=== PATIENT | male | born 1975 | race Hispanic/Latino ===

== ENCOUNTER 2020-10-13 13:09 | Emergency (ER) | payer SELFPAY ==
[2020-10-13 13:26] VITALS: BP 126/77
[2020-10-13] MEDS ORDERED: ZOFRAN ODT 4 MG PO ONE (13:33)
[2020-10-13] MEDS ORDERED: Sodium Chloride 0.9% 1000 ML 1,000 ML IV STA (13:33)
[2020-10-13] MEDS ORDERED: MORPHINE SULFATE 4 MG INJ IV ONE (13:33)
[2020-10-13] MEDS ORDERED: Norflex 60 MG/2 ML IV ONE (13:34)
[2020-10-13] MEDS ORDERED: Sodium Chloride 0.9% 1000 ML 1,000 ML ONE (13:47)
[2020-10-13] MEDS ORDERED: MORPHINE SULFATE 4 MG INJ ONE (13:47)
[2020-10-13] MEDS ORDERED: ZOFRAN ODT 4 MG ONE (13:47)
[2020-10-13] MEDS ORDERED: Norflex 60 MG/2 ML ONE (13:47)
[2020-10-13 14:04] LABS: Absolute Neutrophil Ct (ANC) 4.19 (1.4-6.9); BASOPHIL % 0.2 % (0.0-0.4); Basophil (Absolute #) 0.02 (0-0.4); Eosinophil % 3.7 % (0.00-5.0); Eosinophil (Absolute #) 0.31 (0-0.5); Hematocrit 43.3 % (42-50); Hemoglobin 14.4 gm/dl (12.5-18.0); Lymphocytes % 36.2 % (24.0-44.0); Mean Cell Volume 92.5 fl (78-100); Mean Corpuscular Hemoglobin 30.8 pg (26-32); Mean Corpuscular Hgb Concent. 33.3 g/dl (32-36); Mean Platelet Volume 9.8 fl (7.5-11.0); Monocyte (Absolute #) 0.76 (0.0-1.3); Monocytes % 9.2 % (0.0-12.0); Neutrophil % 50.7 % (36.0-66.0); Platelet Count 285 K/mm3 (150-450); Red Blood Count 4.68 M/mm3 (4.1-5.6); White Blood Count 8.3 K/mm3 (4.0-10.5)
[2020-10-13 14:12] VITALS: PULSE 57
--- NOTE | 2020-10-13 14:19 | XRAY ---
Indication: Right arm pain and numbness. Headache. Comparison: None 3 view right shoulder demonstrates normal bones, articulation, and soft tissues.
--- NOTE | 2020-10-13 14:19 | XRAY ---
Indication: Right arm pain and numbness. Headache. Comparison: None Portable chest demonstrates normal heart, lungs, and bony thorax.
[2020-10-13 14:20] LABS: ALBUMIN 4.4 g/dL (3.5-5.0); ALKALINE PHOSPHATASE 85 U/L (38-126); ANION GAP 12.5 MEQ/L (5-15); BLOOD UREA NITROGEN 10 mg/dL (9-20); CHLORIDE 105 mmol/L (98-107); Carbon Dioxide 26 mmol/L (22-30); Creatinine 1 0.63 mg/dL (0.66-1.25); EST GLOMERULAR FILTRATION RATE > 60.0 ML/MIN; Glucose 89 mg/dL (74-106); Potassium 4.3 mmol/L (3.5-5.1); SGOT/AST 36 U/L (17-59); SGPT/ALT 18 U/L (0-50); SODIUM 139 mmol/L (137-145); Total Protein 7.2 g/dL (6.3-8.2)
--- NOTE | 2020-10-13 14:21 | XRAY ---
Indication: Right arm pain and numbness. Headache. Multiple contiguous axial images obtained through the head without contrast. Comparison: None Normal appearing brain parenchyma, ventricles, and bony calvarium. Moderate mucosal thickening of both ethmoid and lesser degree sphenoid/maxillary sinuses. Mastoid air cells are clear. Impression: Pansinusitis. Remaining CT head without contrast exam is normal.
--- NOTE | 2020-10-13 14:23 | XRAY ---
Indication: Right arm pain and numbness. Neck pain. Headache. Multiple contiguous axial images obtained through the cervical spine. Sagittal and coronal reformatted images obtained. Comparison: None Axial images negative for acute fracture, suspicious bony lesions, or spinal canal stenosis. Minimal C5-C6 broad-based disc osteophyte complex without spinal canal or foraminal compromise. Sagittal and coronal reformatted images demonstrate normal alignment with minimal C5-C6 disc space narrowing. Remaining vertebral body heights/disc spaces maintained. No acute compression fracture, subluxation, or jumped facet. Normal-appearing craniocervical junction. Visualized noncontrasted soft tissues are unremarkable. Lung apices demonstrates minimal pulmonary emphysema. Impression: Minimal C5-C6 degenerative disc disease and minimal pulmonary emphysema. Remaining CT cervical spine is normal.
[2020-10-13] MEDS ORDERED: TORAdol 30 mg Injection ONE (15:05)
[2020-10-13] MEDS ORDERED: TORAdol 30 mg Injection IV ONE (15:08)
[2020-10-13 15:11] VITALS: O2SAT 99
--- NOTE | 2020-10-13 15:22 | ERPHSYRPT ---
- History of Present Illness Time Seen by Provider: 10/13/20 13:16 Source: patient Exam Limitations: no limitations Patient Subjective Stated Complaint: Pt states that he has had a headache for 3 days and it is painful for him to move his right arm, he injured his arm 12 y ears ago Triage Nursing Assessment: Pt brought to the ER by his daughter, altagracia garza, states pain to head is localized to the back, pain in right arm with numbness and tingling, reports having headaches occassionally that last 3 days and has had pain to the arm in the past but today was worse and he couldn't move his arm earlier, pulses normal, rates pain 9/10, denies N&V but does have dizziness Physician History: 45 years old Hungarian-speaking male, daughter translated all history who has history of off and on headaches lasting for 3 to 4 days in the occipital area and improve. He also has history of right upper extremity trauma 12 years ago and having pain off and on with some tingling sensations presented with 2 days history of occipital headache and worsening pain right shoulder/upper extremity and numbness tingling in the hand. He has been taking [id number] medication with no significant relief. Patient rates his headache 9/10 intensity, aggravated with movements and partial relief with being still. Earlier his headache and arm pain was so worse that he was barely able to move his right upper extremity but now pain is 9/10 intensity and is able to move. Reports having similar symptoms multiple times in the past but this time it seems a little severe than normal. He denies any neck pain although has some pain with movements. Denies any neck trauma or head trauma in the past. Denies any chest pain palpitations or shortness of breath. No abdominal pain nausea or vomiting reported. No history of fever chills or neck stiffness reported. Timing/Duration: day(s) (2), constant, gradual onset, worse Quality: sharpness Head Pain Location: occipital Severity of Pain-Max: severe Severity of Pain-Current: severe Recent Head Trauma: no recent headache/trauma, frequent headaches Modifying Factors: Improves With: immobilization. Worsens With: movement, position Associated Symptoms: denies symptoms Previous symptoms: same symptoms as today Allergies/Adverse Reactions: No Known Drug Allergies Allergy (Verified 10/13/20 13:26) Travel Risk - International Travel Have you traveled outside of the country in past 3 weeks: No - Coronavirus Screening Are you exhibiting any of the following symptoms?: No Close contact with a COVID-19 positive Pt in past 14-21 Days: No - Vaccine Status Have you recieved a Covid-19 vaccination: Yes [employer]: Moderna - Vaccination Dates Date of 2cond Vaccination (if applicable): 10/01/2020 - Review of Systems Constitutional: No Symptoms Eyes: No Symptoms Ears, Nose, & Throat: No Symptoms Respiratory: No Symptoms Cardiac: No Symptoms Abdominal/Gastrointestinal: No Symptoms Genitourinary Symptoms: No Symptoms Musculoskeletal: Joint Pain, Myalgias Skin: No Symptoms Neurological: Headache, Sensory Changes, No Dizziness Psychological: No Symptoms Endocrine: No Symptoms Hematologic/Lymphatic: No Symptoms Immunological/Allergic: No Symptoms - Past Medical History Pertinent Past Medical History: No - Past Surgical History Past Surgical History: No - Social History Smoking Status: Current every day smoker Exposure to second hand smoke: Yes Drug Use: none Patient Lives Alone: No - Nursing Vital Signs Nursing Vital Signs: Initial Vital Signs Temperature 98.1 F 10/13/20 13:12 Pulse Rate 78 10/13/20 13:12 Blood Pressure 126/77 10/13/20 13:12 O2 Sat by Pulse Oximetry 98 10/13/20 13:12 Pain Scale Pain Intensity 9 - Physical Exam General Appearance: no apparent distress, alert Eye Exam: PERRL/EOMI, eyes nml inspection Ears, Nose, Throat Exam: normal ENT inspection, TMs normal, pharynx normal Neck Exam: normal inspection, supple, full range of motion, other (Bilateral cervical paraspinal muscle tenderness), No meningismus, No Brudzinski, No Kernig's, No limited range of motion, No midline tenderness Respiratory Exam: normal breath sounds, lungs clear, No chest tenderness Cardiovascular Exam: regular rate/rhythm, normal heart sounds Gastrointestinal/Abdominal Exam: soft, normal bowel sounds, No tenderness Back Exam: normal inspection, normal range of motion Extremity Exam: normal inspection, pelvis stable, tenderness (Tenderness in the trapezius/deltoid muscle/bony prominence since but intact passive range of motion. Normal shipper/receiver and power in right upper extremity. Mild decreased sensations of touch in the medial aspect of hand.) Mental Status Exam: alert, oriented x 3, cooperative resolution analyst Exam: normal hearing, normal speech, PERRL Coordination/Gait Exam: normal finger to nose, normal cerebellar function Motor/Sensory Exam: no motor deficit, no sensory deficit, no pronator drift, negative Babinski's sign DTR Exam: bicep (R): 2+, bicep (L): 2+, tricep (R): 2+, tricep (L): 2+, knee (R): 2+, knee (L): 2+ Skin Exam: normal color SpO2 Interpretation: normal SpO2: 99 O2 Delivery: Room Air Ordered Tests: Active Orders 24 hr Category Date Time Status EKG-ER Only STAT Care 10/13/20 13:33 Completed IV Insertion STAT Care 10/13/20 13:33 Completed NPO (ED) STAT Care 10/13/20 13:33 Completed CERVICAL SPINE WO CONTRAST [CT] Stat Exams 10/13/20 13:32 Completed CHEST 1 VIEW (PORTABLE) Stat Exams 10/13/20 13:34 Completed HEAD WITHOUT CONTRAST [CT] Stat Exams 10/13/20 13:33 Completed SHOULDER Stat Exams 10/13/20 14:09 Completed CBC W DIFF Stat Lab 10/13/20 13:28 Completed CMP Stat Lab 10/13/20 13:28 Completed TROPONIN Q3H Lab 10/13/20 13:45 Completed Transfer Order Routine Transfer 10/13/20 Ordered Medication Summary Discontinued Medications Generic Name Dose Route Start Last Admin Trade Name Karloq PRN Reason Stop Dose Admin Sodium Chloride 1,000 mls @ 999 mls/hr 10/13/20 13:33 10/13/20 15:02 Sodium Chloride 0.9% 1000 Ml IV 10/13/20 14:33 Infused .Q1H1M STA Infusion Sodium Chloride Confirm 10/13/20 13:47 Sodium Chloride 0.9% 1000 Ml Administered 10/13/20 13:48 Dose 1,000 mls @ ud .ROUTE .STK-MED ONE Ketorolac Tromethamine Confirm 10/13/20 15:05 Toradol 30 Mg Injection Administered 10/13/20 15:06 Dose 30 mg .ROUTE .STK-MED ONE Ketorolac Tromethamine 30 mg 10/13/20 15:08 10/13/20 15:09 Toradol 30 Mg Injection IV 10/13/20 15:09 30 mg STAT ONE Administration Morphine Sulfate 4 mg 10/13/20 13:33 10/13/20 13:49 Morphine Sulfate 4 Mg Inj IV 10/13/20 13:34 4 mg STAT ONE Administration Morphine Sulfate Confirm 10/13/20 13:47 Morphine Sulfate 4 Mg Inj Administered 10/13/20 13:48 Dose 4 mg .ROUTE .STK-MED ONE Ondansetron HCl 4 mg 10/13/20 13:33 10/13/20 13:49 Zofran Odt 4 Mg PO 10/13/20 13:34 4 mg STAT ONE Administration Ondansetron HCl Confirm 10/13/20 13:47 Zofran Odt 4 Mg Administered 10/13/20 13:48 Dose 4 mg .ROUTE .STK-MED ONE Orphenadrine Citrate 60 mg 10/13/20 13:34 10/13/20 13:49 Norflex 60 Mg/2 Ml IV 10/13/20 13:35 60 mg STAT ONE Administration Orphenadrine Citrate Confirm 10/13/20 13:47 Norflex 60 Mg/2 Ml Administered 10/13/20 13:48 Dose 60 mg .ROUTE .STK-MED ONE Lab/Rad Data: Laboratory Result Diagrams 10/13/20 13:28 10/13/20 13:28 Laboratory Results 10/13/20 10/13/20 10/13/20 Range/Units 13:45 13:28 13:28 WBC 8.3 (4.0-10.5) K/mm3 RBC 4.68 (4.1-5.6) M/mm3 Hgb 14.4 (12.5-18.0) gm/dl Hct 43.3 (42-50) % MCV 92.5 (78-100) fl MCH 30.8 (26-32) pg MCHC 33.3 (32-36) g/dl RDW 14.0 (11.5-14.0) % Plt Count 285 (150-450) K/mm3 MPV 9.8 (7.5-11.0) fl Gran % 50.7 (36.0-66.0) % Eos # (Auto) 0.31 (0-0.5) Absolute Lymphs (auto) 3.00 (1.0-4.6) Absolute Monos (auto) 0.76 (0.0-1.3) Lymphocytes % 36.2 (24.0-44.0) % Monocytes % 9.2 (0.0-12.0) % Eosinophils % 3.7 (0.00-5.0) % Basophils % 0.2 (0.0-0.4) % Absolute Granulocytes 4.19 (1.4-6.9) Basophils # 0.02 (0-0.4) Sodium 139 (137-145) mmol/L Potassium 4.3 (3.5-5.1) mmol/L Chloride 105 (98-107) mmol/L Carbon Dioxide 26 (22-30) mmol/L Anion Gap 12.5 (5-15) MEQ/L BUN 10 (9-20) mg/dL Creatinine 0.63 L (0.66-1.25) mg/dL Estimated GFR > 60.0 ML/MIN Glucose 89 (74-106) mg/dL Calcium 9.0 (8.4-10.2) mg/dL Total Bilirubin 0.50 (0.2-1.3) mg/dL AST 36 (17-59) U/L ALT 18 (0-50) U/L Alkaline Phosphatase 85 (38-126) U/L Troponin I < 0.012 (0.000-0.034) ng/mL Serum Total Protein 7.2 (6.3-8.2) g/dL Albumin 4.4 (3.5-5.0) g/dL - Progress Progress: improved Air Movement: good Progress Note: 10/13/20 15:23 He is given symptomatic treatment for headache and right upper extremity pain with morphine and Norflex, on reevaluation his headache is completely resolved, still have some pain with movements of right upper extremity, given Toradol shot. I have obtained CT head and cervical spine which are negative for any acute findings but does have some degenerative changes in the cervical spine area. I believe patient symptoms in the right upper extremity pain are more of a radiculopathy 1. EKG normal sinus rhythm, nonfocal neuro exam throughout stay in the ER. Grossly unremarkable work-up. I do not think patient needs neuro consult at this point. I believe he needs follow-up outpatient with orthopedic spine surgery for reevaluation, will give NSAIDs and muscle relaxant to go home. Discussed signs symptoms of worsening needing return to ER which patient/daughter seemed understanding. Stable for discharge. Blood Culture(s) Obtained: No Antibiotics given: No Counseled pt/family regarding: lab results, diagnosis, rad results - Departure Departure Disposition: Home Clinical Impression: Cervicalgia Migraine Qualifiers: Migraine type: unspecified Status migrainosus presence: without status migrain osus Intractability: not intractable Qualified Code(s): G43.909 - Migraine, unspecified, not intractable, without status migrainosus Condition: Stable Critical Care Time: No Referrals: DOCTOR,NO FAMILY [Primary Care Provider] - DENNISE YOU [ACTIVE STAFF] - (1-2 days for reevaluation) JAYASHREE COFFEY MD [NON-STAFF PHY W/O PRIVILEGES] - (Call for appointment in 1 to 2 days) Instructions: Headache, Adult (DC), Generalized Neck Pain (DC) Additional Instructions: Take Tylenol/ibuprofen as needed. Follow-up with primary care and spine surgery for reevaluation. Return to ER for worsening headache, numbness tingling weakness, feeling dizzy lightheaded etc. Prescriptions: Ibuprofen 600 mg PO Q6HPRN PRN 10 Days #20 tablet PRN Reason: Pain Cyclobenzaprine HCl 10 mg [Flexeril 10 MG] 10 mg PO TID PRN #30 tablet PRN Reason: Pain
== END 2020-10-13 16:06 | disposition home or self-care (01) ==
LOC: ED 13:09
DX: M54.2 Cervicalgia (principal)
CPT/HCPCS: 36415; 70450; 71045; 72125; 73030; 80053; 84484; 85025; 93005; 96360; 96374; 96375; 99284; J1885; J2270; J2360; Q0162

== ENCOUNTER 2022-09-22 16:23 | Emergency (ER) | payer SELFPAY ==
--- NOTE | 2022-09-22 16:26 | ERPHSYRPT ---
- History of Present Illness Time Seen by Provider: 09/22/22 16:26 Source: patient, family Exam Limitations: no limitations Physician History: This is a 47-year-old male who has had some back problems in the past and was feeling fine yesterday and again this morning with no complaints of any type of pain. However, he was doing heavy lifting and twisted and suddenly had left lumbar spine level paraspinous muscle pain. He did not fall or suffer any traumatic injury to the area. However he has had trauma in the distant past. Only takes medications for some COPD/bronchitis. He has no known drug allergies. He has no urinary symptoms. Timing/Duration: today Method of Injury: lifting, twisted, turning Quality: sharp Back Pain Location: lumbar spine (Level), paraspinous muscles Severity of Pain-Max: moderate Severity of Pain-Current: moderate Modifying Factors: Improves With: movement Associated Symptoms: lower back pain, muscle spasms (Left paraspinous muscle lumbar level), No urinary incontinence, No loss of bowel control Previous symptoms: same symptoms as today, no recent treatment Allergies/Adverse Reactions: No Known Drug Allergies Allergy (Verified 09/22/22 16:39) Home Medications: Fluticasone/Umeclidin/Vilanter [Trelegy Ellipta 100-62.5-25] 1 inh PO DAILY 09/22/22 [History] Travel Risk - International Travel Have you traveled outside of the country in past 3 weeks: No - Coronavirus Screening Are you exhibiting any of the following symptoms?: No Close contact with a COVID-19 positive Pt in past 14-21 Days: No - Vaccine Status Have you recieved a Covid-19 vaccination: Yes [employer]: Moderna - Vaccination Dates Date of 2cond Vaccination (if applicable): 10/01/2020 - Review of Systems Constitutional: No Symptoms Eyes: No Symptoms Ears, Nose, & Throat: No Symptoms Respiratory: No Symptoms Cardiac: No Symptoms Abdominal/Gastrointestinal: No Symptoms Genitourinary Symptoms: No Symptoms Musculoskeletal: Back Pain (Lumbar level left paraspinous muscle), No Injury Skin: No Symptoms Neurological: No Symptoms Psychological: No Symptoms Endocrine: No Symptoms Hematologic/Lymphatic: No Symptoms Immunological/Allergic: No Symptoms All Other Systems: Reviewed and Negative - Past Medical History Pertinent Past Medical History: No - Past Surgical History Past Surgical History: No - Social History Smoking Status: Current every day smoker Exposure to second hand smoke: Yes Drug Use: none Patient Lives Alone: No - Nursing Vital Signs Nursing Vital Signs: Initial Vital Signs Temperature 98.3 F 09/22/22 16:24 Pulse Rate 80 09/22/22 16:24 Blood Pressure 110/96 09/22/22 16:24 O2 Sat by Pulse Oximetry 96 09/22/22 16:24 Pain Scale Pain Intensity [Left Lower 10 Posterior Lateral Back] Pain Intensity 7 - Physical Exam General Appearance: no apparent distress, alert, anxiety, thin Eye Exam: PERRL/EOMI, eyes nml inspection Ears, Nose, Throat Exam: normal ENT inspection, moist mucous membranes Neck Exam: normal inspection, non-tender, supple, full range of motion Respiratory Exam: airway intact, No chest tenderness, No respiratory distress Gastrointestinal Exam: No tenderness Rectal Exam: not done Back Exam: normal inspection, decreased range of motion, muscle spasm (Left), No CVA tenderness, No vertebral tenderness ( paraspinous muscle at the lumbar level) Extremity Exam: normal inspection, normal range of motion, pelvis stable Neurologic Exam: alert, oriented x 3, cooperative, sports physical therapist II-XII nml as tested, normal mood/affect, nml cerebellar function, nml station & gait, sensation nml Skin Exam: normal color, warm, dry Lymphatic Exam: No adenopathy SpO2 Interpretation: normal O2 Delivery: Room Air - Course Nursing assessment & vital signs reviewed: Yes Ordered Tests: Medication Summary Discontinued Medications Generic Name Dose Route Start Last Admin Trade Name Rena PRN Reason Stop Dose Admin Methylprednisolone Sodium 0 mg 09/22/22 17:01 09/22/22 17:25 Succinate 125 mg/ Sterile IM 09/22/22 17:02 125 mg Water 2 ml STAT ONE Administration Hydromorphone HCl 1 mg 09/22/22 17:01 09/22/22 17:25 Hydromorphone 1 Mg/1ml Inj IM 09/22/22 17:02 1 mg STAT ONE Administration Hydromorphone HCl Confirm 09/22/22 17:21 Hydromorphone 1 Mg/1ml Inj Administered 09/22/22 17:22 Dose 1 mg .ROUTE .STK-MED ONE Methylprednisolone Sodium Succinate Confirm 09/22/22 17:22 Methylprednis Sod Succ 125 Mg/2 Ml Vial Administered 09/22/22 17:23 Dose 125 mg .ROUTE .STK-MED ONE Ondansetron HCl 4 mg 09/22/22 17:02 09/22/22 17:26 Zofran 4 Mg/Udtablet Orally Disintegrating PO 09/22/22 17:03 4 mg STAT ONE Administration Ondansetron HCl Confirm 09/22/22 17:21 Zofran 4 Mg/Udtablet Orally Disintegrating Administered 09/22/22 17:22 Dose 4 mg .ROUTE .STK-MED ONE Orphenadrine Citrate 60 mg 09/22/22 17:02 09/22/22 17:25 Orphenadrine Citrate 60 Mg/2 Ml Vial IM 09/22/22 17:03 60 mg STAT ONE Administration Orphenadrine Citrate Confirm 09/22/22 17:21 Orphenadrine Citrate 60 Mg/2 Ml Vial Administered 09/22/22 17:22 Dose 60 mg .ROUTE .STK-MED ONE Sterile Water Confirm 09/22/22 17:21 Water For Injection,Sterile 10 Ml Vial Administered 09/22/22 17:22 Dose 10 ml IJ .STK-MED ONE - Progress Progress: improved, pain not gone completely Counseled pt/family regarding: diagnosis, need for follow-up Medical Desision Making - Independent Historian Additional History obtained from: Family - Social Determinants of Health Limited access to: transportation, medical care - Diagnostic Testing Diagnostic test were ordered, analyzed, and reviewed by me: No - Risk of complications The pt has a mod risk of morbidity or mortality based on: Need for prescription drug management - Departure Departure Disposition: Home Clinical Impression: Sciatica, Back muscle spasm Condition: Stable Critical Care Time: No Referrals: DOCTOR,NO FAMILY [Primary Care Provider] - Follow up/PCP as directed Additional Instructions: May alternate ice and heat to area of tenderness. Take the medication as pre scribed. Follow-up with an outpatient provider for further evaluation and management. Prescriptions: Prednisone 10 mg [Deltasone 10 mg] 10 mg PO TID #12 tablet Orphenadrine Citrate 100 mg [Norflex 100 MG Tablet] 100 mg PO BID #10 tab
[2022-09-22 16:39] VITALS: PULSE 80; O2SAT 96
[2022-09-22] MEDS ORDERED: solu-MEDROL 125 MG, Sterile H2O 10 ml 2 ML IM ONE ×2 (17:01)
[2022-09-22] MEDS ORDERED: Hydromorphone 1 mg/ml Injection IM ONE (17:01)
[2022-09-22] MEDS ORDERED: ZOFRAN ODT 4 MG PO ONE (17:02)
[2022-09-22] MEDS ORDERED: Norflex 60 MG/2 ML IM ONE (17:02)
[2022-09-22] MEDS ORDERED: Norflex 60 MG/2 ML ONE (17:21)
[2022-09-22] MEDS ORDERED: ZOFRAN ODT 4 MG ONE (17:21)
[2022-09-22] MEDS ORDERED: Sterile H2O 10 ml IJ ONE (17:21)
[2022-09-22] MEDS ORDERED: Hydromorphone 1 mg/ml Injection ONE (17:21)
[2022-09-22] MEDS ORDERED: solu-MEDROL ONE (17:22)
[2022-09-22 18:08] VITALS: BP 135/78
== END 2022-09-22 18:08 | disposition home or self-care (01) ==
LOC: ED 16:23
DX: M54.30 Sciatica, unspecified side (principal); M62.830 Muscle spasm of back; X50.0XXA Overexertion from strenuous movement or load, initial encounter; Z59.82 Transportation insecurity; Z75.3 Unavailability and inaccessibility of health-care facilities; Z20.828 Contact with and (suspected) exposure to other viral communicable diseases; Z72.0 Tobacco use
CPT/HCPCS: 96372; 99283; J1170; J2360; J2930; Q0162

== ENCOUNTER 2023-04-05 09:39 | Emergency (ER) | payer SELFPAY ==
[2023-04-05] MEDS ORDERED: Norflex 60 MG/2 ML IM ONE (10:05)
[2023-04-05] MEDS ORDERED: TORAdol 30 mg Injection IM ONE (10:05)
[2023-04-05 10:14] VITALS: TEMP 98.8
[2023-04-05] MEDS ORDERED: TORAdol 30 mg Injection ONE (10:17)
[2023-04-05] MEDS ORDERED: Norflex 60 MG/2 ML ONE (10:17)
--- NOTE | 2023-04-05 10:36 | ERPHSYRPT ---
- History of Present Illness Time Seen by Provider: 04/05/23 10:05 Source: patient, family Exam Limitations: language barrier Patient Subjective Stated Complaint: Pt is moaning in pain and gaurding his lower back. Triage Nursing Assessment: Pt was has had two incidents where he strained back by lifted heavy boxes while working and today he bent his left leg up and caused shooting pain in lower left side of back. Pt appears in a large amount of pain, unable to ambulate or sit still. Pt is alert and oriented. Son and are at bedside. Pt speaks estonian but son is able to communicate on his behalf. States no numbness or tingling down legs. Respirations are easy. Denies any further injuries. 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 Patient apparently is involved in lifting heavy objects and has history of low back pain to begin with got worse few days ago when he lifted something heavy. He has been taking [id number] medication with no significant relief and this morning he twisted/bent over and pain got worse the left lower back severe sharp shooting like stabbing knife making it difficult ambulation and lying still. No numbness or tingling/weakness of lower extremities. No loss of bowel or bladder control or perineal numbness. Denies any direct trauma or fall. Allergies/Adverse Reactions: No Known Drug Allergies Allergy (Verified 04/05/23 10:05) Hx Tetanus, Diphtheria Vaccination/Date Given: No Hx Influenza Vaccination/Date Given: Yes Hx Pneumococcal Vaccination/Date Given: No Immunizations Up to Date: Yes Travel Risk - International Travel Have you traveled outside of the country in past 3 weeks: No - Coronavirus Screening Are you exhibiting any of the following symptoms?: No Close contact with a COVID-19 positive Pt in past 14-21 Days: No - Vaccine Status Have you recieved a Covid-19 vaccination: Yes Manufacturing Specialist: Moderna - Vaccination Dates Date of 2cond Vaccination (if applicable): 10/01/2020 - Review of Systems Constitutional: No Symptoms Ears, Nose, & Throat: No Symptoms Respiratory: No Symptoms Cardiac: No Symptoms Abdominal/Gastrointestinal: No Symptoms Genitourinary Symptoms: No Symptoms Musculoskeletal: Back Pain Skin: No Symptoms Neurological: No Symptoms Endocrine: No Symptoms Hematologic/Lymphatic: No Symptoms Immunological/Allergic: No Symptoms - Past Medical History Pertinent Past Medical History: No - Past Surgical History Past Surgical History: No - Social History Smoking Status: Current every day smoker Exposure to second hand smoke: Yes Drug Use: none Patient Lives Alone: No - Nursing Vital Signs Nursing Vital Signs: Initial Vital Signs Blood Pressure 105/65 04/05/23 10:01 O2 Sat by Pulse Oximetry 95 04/05/23 10:01 Pain Scale Pain Intensity [Left Back] 10 Pain Intensity 8 - Physical Exam General Appearance: no apparent distress, alert Eye Exam: PERRL/EOMI Ears, Nose, Throat Exam: normal ENT inspection Neck Exam: normal inspection, non-tender, supple, full range of motion Respiratory Exam: normal breath sounds, lungs clear Cardiovascular Exam: regular rate/rhythm, normal heart sounds Gastrointestinal Exam: soft, normal bowel sounds, No tenderness Back Exam: normal inspection, decreased range of motion, muscle spasm, point tenderness (Left sacroiliac area), No normal range of motion, No CVA tenderness, No vertebral tenderness Extremity Exam: normal inspection, normal range of motion, pelvis stable Neurologic Exam: alert, oriented x 3, cooperative, sound engineering technician II-XII nml as tested, sensation nml, No motor deficits SpO2 Interpretation: normal SpO2: 95 O2 Delivery: Room Air Ordered Tests: Active Orders 24 hr Category Date Time Status LUMBAR SPINE W/O [CT] Stat Exams 04/05/23 10:05 Completed Medication Summary Discontinued Medications Generic Name Dose Route Start Last Admin Trade Name Freq PRN Reason Stop Dose Admin Hydromorphone HCl 1 mg 04/05/23 11:32 Hydromorphone 1 Mg/1ml Inj IM 04/05/23 11:33 STAT ONE Ketorolac Tromethamine 30 mg 04/05/23 10:05 04/05/23 10:18 Ketorolac Tromethamine 30 Mg/Ml Inj IM 04/05/23 10:06 30 mg STAT ONE Administration Ketorolac Tromethamine Confirm 04/05/23 10:17 Ketorolac Tromethamine 30 Mg/Ml Inj Administered 04/05/23 10:18 Dose 30 mg .ROUTE .STK-MED ONE Orphenadrine Citrate 60 mg 04/05/23 10:05 04/05/23 10:18 Orphenadrine Citrate 60 Mg/2 Ml Vial IM 04/05/23 10:06 60 mg STAT ONE Administration Orphenadrine Citrate Confirm 04/05/23 10:17 Orphenadrine Citrate 60 Mg/2 Ml Vial Administered 04/05/23 10:18 Dose 60 mg .ROUTE .STK-MED ONE - Progress Progress: improved, re-examined Progress Note: 04/05/23 12:48 47 years old is evaluated for left lower back pain. Has history of chronic back pain which got worse lately after lifting heavy object and prior to arrival earlier today he bent/twisted his back with sharp stabbing pain. Negative neuro exam in lower extremities. No definite or midline tenderness. Has tenderness in the left sacroiliac area. Painful movements in the left lower extremity. Distal neurovascular intact. He is given Toradol and Norflex for symptomatic relief, on reevaluation his pain is better but not completely resolved. He is given Dilaudid IM shot. Pain is significantly improved. Patient able to able to get up and ambulate better. I have obtained CT lumbar spine which is negative for any acute fracture or subluxation. No signs of cauda equina. I believe patient has lumbosacral area strain. Will continue with NSAIDs and muscle relaxants to go home and outpatient follow-up recommended. Recommended avoiding exertional activities. Discussed signs symptoms of worsening needing return to ER which she seems understanding. Stable for discharge. Counseled pt/family regarding: diagnosis, need for follow-up, rad results Medical Desision Making - Independent Historian Additional History obtained from: Spouse, Relative/friend - Diagnostic Testing Radiological Interpretation: Reviewed by me - Risk of complications The pt has a mod risk of morbidity or mortality based on: Need for prescription drug management - Departure Departure Disposition: Home Clinical Impression: Lumbosacral strain Condition: Stable Critical Care Time: No Referrals: DOCTOR,NO FAMILY [Primary Care Provider] - Follow up/PCP as directed DENNISE YOU MD [ACTIVE STAFF] - Follow Up with PCP/3 days Instructions: Low Back Pain (DC) Additional Instructions: Avoid exertional activities. Take pain medication/muscle relaxants as recommended. Follow-up with primary care for reevaluation. Return to ER for intractable low back pain, numbness tingling weakness of lower extremities/loss of bowel or bladder control or perineal numbness. Prescriptions: Ibuprofen 600 mg PO Q6HPRN PRN 10 Days #30 tablet PRN Reason: Pain Cyclobenzaprine HCl 10 mg [Flexeril 10 MG] 10 mg PO TID #30 tablet
--- NOTE | 2023-04-05 10:52 | XRAY ---
Indication: Low back pain following lifting injury. Multiple contiguous axial images obtained through the lumbar spine. Sagittal and coronal reformatted images obtained. Comparison: None Axial images negative for acute fracture, suspicious bony lesions, or spinal canal stenosis. Facets and SI joints are symmetric. Sagittal and coronal reformatted images demonstrates normal alignment with vertebral body heights/disc spaces maintained. No acute compression fracture or subluxation. Visualized noncontrasted soft tissues unremarkable. Impression: Normal CT lumbar spine.
[2023-04-05] MEDS ORDERED: Hydromorphone 1 mg/ml Injection IM ONE (11:32)
[2023-04-05] MEDS ORDERED: Hydromorphone 1 mg/ml Injection ONE (11:59)
[2023-04-05 12:09] VITALS: BP 121/63; PULSE 74; RESP 20; O2SAT 97
== END 2023-04-05 12:54 | disposition home or self-care (01) ==
LOC: ED 09:39
DX: S39.012A Strain of muscle, fascia and tendon of lower back, initial encounter (principal); X50.0XXA Overexertion from strenuous movement or load, initial encounter; Z79.899 Other long term (current) drug therapy; Z72.0 Tobacco use
CPT/HCPCS: 72131; 96372; 99283; J1170; J1885; J2360

== ENCOUNTER 2024-05-16 16:52 | Emergency (ER) | payer SELFPAY ==
--- NOTE | 2024-05-16 17:47 | ERPHSYRPT ---
- History of Present Illness Historian: patient, family Exam Limitations: language barrier Patient Subjective Stated Complaint: pt here for pain to abd and passing some bright red blood in stools since 05/05/24. no fever, no nausea, son is medical interpreter. Triage Nursing Assessment: .pt alert, walked in, Timing/Duration: day(s) (10 days) Quality: burning Abdominal Pain Onset Location: epigastric Severity of Pain-Max: mild Severity of Pain-Current: mild Associated Symptoms: heartburn, loss of appetite Previous symptoms: no prior history Hx Tetanus, Diphtheria Vaccination/Date Given: No Hx Influenza Vaccination/Date Given: No Hx Pneumococcal Vaccination/Date Given: No Immunizations Up to Date: Yes <NANCIE CHARLESYESH - Last Filed: 05/16/24 18:39> <MAYNOR PENG - Last Filed: 05/16/24 20:54> - History of Present Illness Time Seen by Provider: 05/16/24 17:43 Physician History: pt here for pain to abdomen and passing some bright red blood in stools since 05/05/24. no fever, no nausea, son is medical interpreter. Patient is 48-year-old male Tamazight-speaking came to the emergency room with complaining of epigastric abdominal pain and bright red blood per rectum since May 05, 2024. History is obtained with the help of medical interpreter who is patient's son. According to them patient drank some tequila on May 05 and afterward he started having epigastric pain associated with the bright red blood per rectum. Patient denies any abdominal distention or vomiting of blood. Patient did not have at this type of symptoms before. Patient denies any history of colitis before. (ARACELI,PALMA) Allergies/Adverse Reactions: No Known Drug Allergies Allergy (Verified 04/05/23 10:05) Travel Risk - International Travel Have you traveled outside of the country in past 3 weeks: No - Emerging Infectious Disease Are you exhibiting symptoms associated with any current EIDs: Yes Symptoms: Abdominal Pain <ARACELI,PALMA - Last Filed: 05/16/24 18:39> - Review of Systems Constitutional: No Fever, No Chills Eyes: No Symptoms Ears, Nose, & Throat: No Symptoms Respiratory: No Cough, No Dyspnea Cardiac: No Chest Pain, No Edema, No Syncope Abdominal/Gastrointestinal: Abdominal Pain, Hematochezia, Appetite Changes, No Nausea, No Vomiting, No Diarrhea Genitourinary Symptoms: No Dysuria Musculoskeletal: No Back Pain, No Neck Pain Skin: No Rash Neurological: No Dizziness, No Focal Weakness, No Sensory Changes Psychological: No Symptoms Endocrine: No Symptoms All Other Systems: Reviewed and Negative <ARACELI Filed: 05/16/24 18:39> - Past Medical History Pertinent Past Medical History: No - Past Surgical History Past Surgical History: No - Social History Smoking Status: Current every day smoker Exposure to second hand smoke: Yes Drug Use: none Patient Lives Alone: No - Social Determinants of Health Will the patient participate in the screening: Unable to obtain <ARACELI Filed: 05/16/24 18:39> - Physical Exam General Appearance: no apparent distress, alert Eye Exam: PERRL/EOMI, eyes nml inspection Ears, Nose, Throat Exam: normal ENT inspection, pharynx normal, moist mucous membranes Neck Exam: normal inspection, non-tender, supple, full range of motion Respiratory Exam: normal breath sounds, lungs clear, No respiratory distress Cardiovascular Exam: regular rate/rhythm, normal heart sounds Gastrointestinal/Abdomen Exam: soft, No tenderness, No mass Back Exam: normal inspection, normal range of motion, No CVA tenderness, No vertebral tenderness Extremity Exam: normal inspection, normal range of motion, pelvis stable Neurologic Exam: alert, oriented x 3, cooperative, normal mood/affect, nml cerebellar function, sensation nml, No motor deficits Skin Exam: normal color, warm, dry <ARACELI Filed: 05/16/24 18:39> - Nursing Vital Signs Nursing Vital Signs: Initial Vital Signs Pulse Rate 71 05/16/24 18:00 Respiratory Rate 19 05/16/24 18:00 Blood Pressure 123/76 05/16/24 18:00 O2 Sat by Pulse Oximetry 98 05/16/24 18:00 Pain Scale Pain Intensity 0 - Course Nursing assessment & vital signs reviewed: Yes - CT Exams Abdomen/Pelvis CT Interpretation: Tele-radiologist Report <ARACELI Filed: 05/16/24 18:39> Ordered Tests: Active Orders 24 hr Category Date Time Status ABDOMEN AND PELVIS W/0 CONTRAS [CT] Stat Exams 05/16/24 17:47 Completed AMYLASE Stat Lab 05/16/24 18:19 Completed CBC W DIFF Stat Lab 05/16/24 18:19 Completed CMP Stat Lab 05/16/24 18:19 Completed LIPASE Stat Lab 05/16/24 18:19 Completed UA W/RFX UR CULTURE Stat Lab 05/16/24 18:19 Completed Urine Triage Profile Stat Lab 05/16/24 18:19 Completed Medication Summary Discontinued Medications Generic Name Dose Route Start Last Admin Trade Name Rena PRN Reason Stop Dose Admin Sodium Chloride 1,000 mls @ 999 mls/hr 05/16/24 17:34 05/16/24 19:57 Sodium Chloride 0.9% 1000 Ml IV 05/16/24 18:34 Infused .Q1H1M STA Infusion Sodium Chloride Confirm 05/16/24 18:15 Sodium Chloride 0.9% 1000 Ml Administered 05/16/24 18:16 Dose 1,000 mls @ ud .ROUTE .STK-MED ONE Ondansetron HCl 4 mg 05/16/24 17:34 05/16/24 18:20 Ondansetron Hcl 4 Mg/2 Ml Vial IV 05/16/24 17:35 4 mg STAT ONE Administration Ondansetron HCl Confirm 05/16/24 18:15 Ondansetron Hcl 4 Mg/2 Ml Vial Administered 05/16/24 18:16 Dose 4 mg .ROUTE .STK-MED ONE Pantoprazole Sodium 40 mg 05/16/24 17:34 05/16/24 18:20 Pantoprazole 40 Mg Vial IV 05/16/24 17:35 40 mg STAT ONE Administration Pantoprazole Sodium Confirm 05/16/24 18:15 Pantoprazole 40 Mg Vial Administered 05/16/24 18:16 Dose 40 mg IV .STK-MED ONE Lab/Rad Data: Laboratory Result Diagrams 05/16/24 18:19 05/16/24 18:19 Laboratory Results 05/16/24 05/16/24 05/16/24 Range/Units 18:19 18:19 18:19 WBC 8.7 (4.23-9.07) x10^3/uL RBC 4.52 L (4.63-6.08) x10^6/uL Hgb 14.0 (13.7-17.5) g/dL Hct 41.3 (40.1-51.0) % MCV 91.4 (79.0-92.2) fL MCH 31.0 (25.7-32.2) pg MCHC 33.9 (32.3-36.5) g/dL RDW 13.3 (11.6-14.4) % Plt Count 284 (163-337) x10^3/uL MPV 9.9 (9.4-12.4) fL Gran % 45.3 (34.0-67.9) % Immature Gran % (Auto) 0.2 (0.001-0.429) % Nucleat RBC Rel Count 0.0 (0.00-0.2) % Eos # (Auto) 0.40 (0.04-0.54) x10^3/uL Immature Gran # (Auto) 0.02 (0.001-0.031) x10^3u/L Absolute Lymphs (auto) 3.52 (1.32-3.57) x10^3/uL Absolute Monos (auto) 0.77 (0.30-0.82) x10^3/uL Absolute Nucleated RBC 0.00 (0.00-0.012) x10^3u/L Lymphocytes % 40.4 (21.8-53.1) % Monocytes % 8.8 (5.3-12.2) % Eosinophils % 4.6 (0.8-7.0) % Basophils % 0.7 (0.2-1.2) % Absolute Granulocytes 3.95 (1.78-5.38) x10^3/uL Basophils # 0.06 (0.01-0.08) x10^3/uL Sodium 139 (135-145) mmol/L Potassium 4.1 (3.5-5.1) mmol/L Chloride 105 (98-107) mmol/L Carbon Dioxide 27 (22-30) mmol/L Anion Gap 10.7 (5-15) MEQ/L BUN 11 (9-20) mg/dL Creatinine 0.73 (0.66-1.25) mg/dL Estimated GFR 112.9 ML/MIN Glucose 93 (74-106) mg/dL Calcium 9.2 (8.4-10.2) mg/dL Total Bilirubin 0.20 (0.2-1.3) mg/dL AST 29 (17-59) U/L ALT 21 (0-50) U/L Alkaline Phosphatase 86 (38-126) U/L Serum Total Protein 7.0 (6.3-8.2) g/dL Albumin 4.4 (3.5-5.0) g/dL Amylase 75 (30-110) U/L Lipase 41 (23-300) U/L Urine Color (Yellow) Urine Appearance (Clear) Urine pH (4.6-8.0) Ur Specific [place] (1.005-1.030) Urine Protein (Negative) Urine Glucose (UA) (Negative) mg/dL Urine Ketones (Negative) Urine Blood (Negative) Urine Nitrite (Negative) Urine Bilirubin (Negative) Urine Urobilinogen (0.2) mg/dL Ur Leukocyte Esterase (Negative) U Hyaline Cast (Auto) (0-2) /LPF Urine Microscopic RBC (0-5) /HPF Urine Microscopic WBC (0-5) /HPF Ur Epithelial Cells (None Seen) /HPF Urine Bacteria (None Seen) /HPF Urine Culture Reflexed (NO) Urine Opiates Level NEGATIVE (NEGATIVE) Ur Methadone NEGATIVE (NEGATIVE) Urine Barbiturates NEGATIVE (NEGATIVE) Ur Phencyclidine (PCP) NEGATIVE (NEGATIVE) Urine Amphetamine NEGATIVE (NEGATIVE) U Benzodiazepine Level NEGATIVE (NEGATIVE) Urine Cocaine NEGATIVE (NEGATIVE) Urine Marijuana (THC) NEGATIVE (NEGATIVE) 05/16/24 Range/Units 18:19 WBC (4.23-9.07) x10^3/uL RBC (4.63-6.08) x10^6/uL Hgb (13.7-17.5) g/dL Hct (40.1-51.0) % MCV (79.0-92.2) fL MCH (25.7-32.2) pg MCHC (32.3-36.5) g/dL RDW (11.6-14.4) % Plt Count (163-337) x10^3/uL MPV (9.4-12.4) fL Gran % (34.0-67.9) % Immature Gran % (Auto) (0.001-0.429) % Nucleat RBC Rel Count (0.00-0.2) % Eos # (Auto) (0.04-0.54) x10^3/uL Immature Gran # (Auto) (0.001-0.031) x10^3u/L Absolute Lymphs (auto) (1.32-3.57) x10^3/uL Absolute Monos (auto) (0.30-0.82) x10^3/uL Absolute Nucleated RBC (0.00-0.012) x10^3u/L Lymphocytes % (21.8-53.1) % Monocytes % (5.3-12.2) % Eosinophils % (0.8-7.0) % Basophils % (0.2-1.2) % Absolute Granulocytes (1.78-5.38) x10^3/uL Basophils # (0.01-0.08) x10^3/uL Sodium (135-145) mmol/L Potassium (3.5-5.1) mmol/L Chloride (98-107) mmol/L Carbon Dioxide (22-30) mmol/L Anion Gap (5-15) MEQ/L BUN (9-20) mg/dL Creatinine (0.66-1.25) mg/dL Estimated GFR ML/MIN Glucose (74-106) mg/dL Calcium (8.4-10.2) mg/dL Total Bilirubin (0.2-1.3) mg/dL AST (17-59) U/L ALT (0-50) U/L Alkaline Phosphatase (38-126) U/L Serum Total Protein (6.3-8.2) g/dL Albumin (3.5-5.0) g/dL Amylase (30-110) U/L Lipase (23-300) U/L Urine Color Yellow (Yellow) Urine Appearance Clear (Clear) Urine pH 5.5 (4.6-8.0) Ur Specific [place] 1.020 (1.005-1.030) Urine Protein Negative (Negative) Urine Glucose (UA) Negative (Negative) mg/dL Urine Ketones Negative (Negative) Urine Blood Trace (Negative) Urine Nitrite Negative (Negative) Urine Bilirubin Negative (Negative) Urine Urobilinogen 1.0 A (0.2) mg/dL Ur Leukocyte Esterase Negative (Negative) U Hyaline Cast (Auto) NONE SEEN (0-2) /LPF Urine Microscopic RBC 0-2 (0-5) /HPF Urine Microscopic WBC 0-2 (0-5) /HPF Ur Epithelial Cells None Seen (None Seen) /HPF Urine Bacteria None Seen (None Seen) /HPF Urine Culture Reflexed NO (NO) Urine Opiates Level (NEGATIVE) Ur Methadone (NEGATIVE) Urine Barbiturates (NEGATIVE) Ur Phencyclidine (PCP) (NEGATIVE) Urine Amphetamine (NEGATIVE) U Benzodiazepine Level (NEGATIVE) Urine Cocaine (NEGATIVE) Urine Marijuana (THC) (NEGATIVE) - Progress Progress: improved <MAYNOR PENG - Last Filed: 05/16/24 20:54> - Progress Progress Note: Patient was stable throughout stay. After I discussed with him it looks like he just had some small amounts of bright red blood per rectum probably secondary to some rectal irritation. His hemoglobin hematocrit were stable. His electrolytes all look good. He got IV fluids and tolerated it well. On the differential was GI bleed, gastroenteritis, diverticulitis, colitis. I think the patient just has gastroenteritis with some rectal irritation. I am going to have him follow-up with his primary doctor if the bleeding does not go away or or worsens.Going to send him home with some Zofran 05/16/24 20:51 05/16/24 20:52 (MAYNOR PENG) Medical Desision Making - Discussion of managment Reviewed:: Test results - Social Determinants of Health Pt's dx & treatment plan are significantly limited by SDOH: Unemployed - Diagnostic Testing Radiological Interpretation: Reviewed by me - Risk of complications Minimal Risk: Minimal risk of morbidity <MAYNOR PENG - Last Filed: 05/16/24 20:54> <PALMA CHARLES - Last Filed: 05/16/24 18:39> - Departure Departure Disposition: Home Critical Care Time: No <MAYNOR PENG - Last Filed: 05/16/24 20:54> - Departure Clinical Impression: Gastroenteritis Condition: Stable Referrals: DOCTOR,NO FAMILY [Primary Care Provider] - Follow up/PCP as directed Instructions: Viral gastroenteritis in adults
[2024-05-16] MEDS ORDERED: Sodium Chloride 0.9% 1000 ML 1,000 ML ONE (18:15)
[2024-05-16] MEDS ORDERED: PROTONIX 40 MG IV IV ONE (18:15)
[2024-05-16] MEDS ORDERED: Zofran 4 MG/2 ML VIAL ONE (18:15)
[2024-05-16] MEDS: PROTONIX 40 MG IV IV ONE (18:20)
[2024-05-16] MEDS: Zofran 4 MG/2 ML VIAL IV ONE (18:20)
[2024-05-16] MEDS: Sodium Chloride 0.9% 1000 ML 1,000 ML IV STA (18:20)
[2024-05-16 18:22] LABS: Absolute Neutrophil Ct (ANC) 3.95 x10^3/uL (1.78-5.38); BASOPHIL % 0.7 % (0.2-1.2); Basophil (Absolute #) 0.06 x10^3/uL (0.01-0.08); Eosinophil % 4.6 % (0.8-7.0); Hematocrit 41.3 % (40.1-51.0); IMMATURE GRAN # 0.02 x10^3u/L (0.001-0.031); IMMATURE GRAN % 0.2 % (0.001-0.429); Lymphocyte (Absolute #) 3.52 x10^3/uL (1.32-3.57); Lymphocytes % 40.4 % (21.8-53.1); Mean Cell Volume 91.4 fL (79.0-92.2); Mean Corpuscular Hgb Concent. 33.9 g/dL (32.3-36.5); Mean Platelet Volume 9.9 fL (9.4-12.4); Monocyte (Absolute #) 0.77 x10^3/uL (0.30-0.82); Monocytes % 8.8 % (5.3-12.2); Neutrophil % 45.3 % (34.0-67.9); Platelet Count 284 x10^3/uL (163-337); Red Blood Count 4.52 x10^6/uL (4.63-6.08); Red Cell Distribution Width 13.3 % (11.6-14.4); White Blood Count 8.7 x10^3/uL (4.23-9.07)
[2024-05-16 18:33] LABS: Appearance Clear (Clear); Bacteria None Seen /HPF (None Seen); Bilirubin Negative (Negative); Blood Trace (Negative); Epithelial Cells None Seen /HPF (None Seen); Glucose, Urine Negative (Negative); Hyaline Casts NONE SEEN /LPF (0-2); Ketones Negative (Negative); Leukocyte Esterase Negative (Negative); Nitrite Negative (Negative); Ph 5.5 (4.6-8.0); Protein,Urine Dip Negative (Negative); RBC 0-2 /HPF (0-5); WBC 0-2 /HPF (0-5)
[2024-05-16 18:35] LABS: ALBUMIN 4.4 g/dL (3.5-5.0); ANION GAP 10.7 MEQ/L (5-15); BILIRUBIN,TOTAL 0.2 mg/dL (0.2-1.3); Calcium 9.2 mg/dL (8.4-10.2); Creatinine 1 0.73 mg/dL (0.66-1.25); EST GLOMERULAR FILTRATION RATE 112.9 ML/MIN; Potassium 4.1 mmol/L (3.5-5.1)
[2024-05-16 18:44] LABS: Amphetamine,Urine NEGATIVE (NEGATIVE); Barbiturate,Urine NEGATIVE (NEGATIVE); Benzodiazepine,Urine NEGATIVE (NEGATIVE); Cocaine,Urine NEGATIVE (NEGATIVE); Methadone,Urine NEGATIVE (NEGATIVE); Opiate,Urine NEGATIVE (NEGATIVE); PCP,Urine NEGATIVE (NEGATIVE); THC,Urine NEGATIVE (NEGATIVE)
[2024-05-16 20:06] VITALS: O2SAT 98
--- NOTE | 2024-05-16 20:47 | XRAY ---
CLINICAL HISTORY: bloody diarrhea, epigastric pain COMPARISON: None. TECHNIQUE: Non-contrast CT of the abdomen and pelvis was performed, with the following protocol: axial images, and reconstructed coronal and sagittal images. No intravenous contrast was administered. One of the following dose reduction techniques was utilized for this exam: Automated exposure control, adjustment of the mA and/or kV according to patient size, and use of iterative reconstruction. FINDINGS: Abdomen: Liver: Normal in size, shape, and density. No focal lesions, cysts, or masses were identified. Gallbladder and Biliary System: The gallbladder is contracted. No wall thickening, pericholecystic fluid, or gallstones were identified. Pancreas: Pancreatic head, body, and tail are visualized and appear normal in size and density. No pancreatic masses or calcifications were noted. Spleen: Normal in size, shape, and density. No splenic lesions or masses were identified. Kidneys and Adrenal Glands: Both kidneys are normal in size, shape, and position. Cortical thickness is within normal limits. No renal calculi or hydronephrosis. Adrenal glands are unremarkable. Appendix: The appendix is normal in size without willow appendiceal fat stranding, and without an appendicolith. No evidence of appendiceal abscess or perforation. Pelvis: Urinary Bladder: Normal in contour and wall thickness. No intraluminal lesions. The prostate is seen unremarkable. Peritoneal and Retroperitoneal Structures: No free fluid or abnormal fluid collections were identified within the abdomen or pelvis. No lymphadenopathy was noted. Bowel: The visualized bowel loops are normal in caliber and appearance. No evidence of bowel obstruction or wall thickening. Extensive colonic diverticulosis with mild mural thickening at the sigmoid colon at the left iliac fossa, No related convincing fat stranding,fluid or extraluminal air, suggestive of mild inflammatory process. Bones and Soft Tissues: Pelvic bones and soft tissues are unremarkable. No fractures or abnormal masses were identified. Scanned chest cuts are unremarkable. IMPRESSION: Extensive colonic diverticulosis with mild mural thickening at the sigmoid colon at the left iliac fossa. No related convincing fat stranding,fluid or extraluminal air. Findings are suggestive of mild inflammatory process. Clinical correlation is recommended and further assessment by contrast study. Electronically Signed by: Beau Dickinson MD. (05/16/2024 20:42:49 EST)
[2024-05-16 21:03] VITALS: BP 127/73; PULSE 64; RESP 17
== END 2024-05-16 21:22 | disposition home or self-care (01) ==
LOC: ED 16:52
DX: K52.9 Noninfective gastroenteritis and colitis, unspecified (principal); K92.1 Melena; R10.13 Epigastric pain; F17.200 Nicotine dependence, unspecified, uncomplicated
CPT/HCPCS: 36415; 74176; 80053; 80307; 81001; 82150; 83690; 85025; 96360; 96374; 99284; J2405